=== PATIENT | male | born 1930 | race Caucasian/White ===

== ENCOUNTER → 2017-08-12 | Outpatient (CLI) | payer OTHER ==
[~2017-08-12] MED LIST: ALBUTEROL0.09 MG/A2 IH; ALDACTONE25 MG PO; ALPHAGAN P5 M1 OU; ARTIFICIAL TEAR15 M1 OP; ASPIR 8181 MG PO; ATRUD HHN; CAR1 PO; CARAFATE1 GM PO; CARVEDILOL6.25 M1 PO; CELEXA10 MG PO; COMINH INH; COR6 PO; COREG6.25 MG PO; COZAAR50 MG PO; FER300 PO; FERROUS SULFAT325 M2 PO; FLO4 PO; FLOMAX0.4 MG PO; HUMULIN R100 U/1 M1 SC; L20 PO; LAC PO; LANTUS SOLOS100 U/M1; LANTUS SOLOS100 U/M1 SQ; LASIX40 MG PO; LEV500 PO; LEVAQUIN750 MG PO; LEVEMIR100 U/M1 SQ; LEVOTHYROXIN0.025 M2 PO; LIPI20 PO; MULTI-VITAMINS1 TAB PO; NOVI SQ; NOVOLOG100 U/ML SC; PEPCID20 MG PO; PLAVIX75 MG PO; PRI20 PO; PROTONIX40 MG PO; SYMBICORT INH; SYMBICORT1 AE2 IH; SYMBICORT1 AE2 INH; VIC PO; VITAMIN C500 M4 PO; ZES20 PO
== END | disposition home or self-care (01) ==
LOC: RD 16:39
PROC: B44HZZZ Ultrasonography of Bilateral Lower Extremity Arteries (ICD-10-PCS; principal; 2017-08-12)
DX: J06.9 Acute upper respiratory infection, unspecified (principal); R06.02 Shortness of breath
CPT/HCPCS: Q0092

== ENCOUNTER → 2017-12-21 | Outpatient (CLI) | payer OTHER | END | disposition home or self-care (01) | LOC: RD 17:20 | DX: J18.9 Pneumonia, unspecified organism (principal) ==

== ENCOUNTER 2019-07-26 15:15 | Emergency (ER) | payer OTHER ==
[~2019-07-26] VITALS: Ht 165.1 cm; Wt 113.4 kg
[2019-07-26 15:23] VITALS: Ht 165.1 cm; Wt 113.4 kg
[2019-07-26 19:51] VITALS: BP 102/39
== END 2019-07-26 19:51 | disposition home or self-care (01) ==
LOC: ED 15:15
DX: L03.116 Cellulitis of left lower limb (principal); S83.92XA Sprain of unspecified site of left knee, initial encounter; J44.9 Chronic obstructive pulmonary disease, unspecified; I11.0 Hypertensive heart disease with heart failure; I50.9 Heart failure, unspecified; E11.9 Type 2 diabetes mellitus without complications; Z86.73 Personal history of transient ischemic attack (TIA), and cerebral infarction without residual deficits; Z85.51 Personal history of malignant neoplasm of bladder; Z88.5 Allergy status to narcotic agent; W18.39XA Other fall on same level, initial encounter; Y93.89 Activity, other specified; Y92.89 Other specified places as the place of occurrence of the external cause; Y99.8 Other external cause status
CPT/HCPCS: Q0092